=== PATIENT | female | born 1960 | race Asian ===

== ENCOUNTER 2024-02-13 09:49 | Emergency (ER) | payer OTHER ==
[~2024-02-13] VITALS: Ht 154.9 cm; Wt 50.8 kg
[2024-02-13 09:52] VITALS: BP 174/72; PULSE 87; RESP 19; TEMP 99; O2SAT 100
--- NOTE | 2024-02-13 10:00 | NUR ---
Patient wheelchair assisted to bed 7.
--- NOTE | 2024-02-13 10:03 | NUR ---
Patient being evaluated by physician at bedside.
[2024-02-13 10:06] VITALS: BP 151/63; PULSE 80; RESP 20; TEMP 96.8; O2SAT 98
--- NOTE | 2024-02-13 10:06 | NUR ---
63F PRESENTED TO ED AFTER FALL WHILE HIKING AT [employer] IN [place]. STATED SHE LOST TRACTION AND HER HIKING SHOES NEEDS TO BE REPLACED. DENIES HITTING HER HEAD OR LOC. PT STATED SHE LANDED ON HER BACK AND HAVE LOWER BACK PAIN RADIATING TO THE RIGHT SIDE. PATIENT WAS BY HERSELF AND DROVE HERSELF TO THE ED. NO ABRASION, BRUISING OR HEMATOMA ON THE AFFECTED SITE. RESPIRATION EVEN AND UNLABORED. DENIES CHEST PAIN, HEADACHE, LIGHTHEADEDNESS OR SOB. TOOK [facility]CO 30MINUTES AGO PRIOR TO COMIN IN TO ED. NO PMHX. DENTAL PROCEDURE 1 MONTH AGO; EIGHT KNEE ARHTROSCOPY IN 1999. Addendum: 02/13/24 at 1026 by [email or web address] CORRECTION: RIGHT KNEE ARTHROSCOPY IN 1999
[2024-02-13] MEDS ORDERED: IBUP-2213 PO (10:13)
[2024-02-13] MEDS ORDERED: ACET-8905 PO (10:13)
[2024-02-13] MEDS: IBUPROFEN 600 MG TAB PO ONE (10:20)
--- NOTE | 2024-02-13 11:12 | NUR ---
Patient discharged with v/s stable. Written and verbal after care instructions given. Patient alert, oriented and verbalized understanding of instructions. Ambulatory with steady gait. All questions addressed prior to discharge. ID band removed. Patient advised to follow up with PMD. Rx of Hydrocodone-Acetaminophen and Ibuprofen given. Opportunity to ask questions provided and answered.
--- NOTE | 2024-02-13 11:20 | NUR ---
Chart checked and completed. The patient's care was reviewed and supervised by ADAM WAYNE RN.
== END 2024-02-13 11:12 | disposition home or self-care (01) ==
LOC: MED 09:49
DX: M54.50 Low back pain, unspecified (principal); W18.39XA Other fall on same level, initial encounter; Y92.89 Other specified places as the place of occurrence of the external cause; Y93.89 Activity, other specified; Y99.8 Other external cause status
CPT/HCPCS: 99283